=== PATIENT | female | born 1990 | race Asian ===

== ENCOUNTER 2020-01-08 15:10 | Outpatient (CLI) | payer BC | END 2020-01-08 21:48 | disposition home or self-care (01) | LOC: MAMMO 15:10 | DX: N63.24 Unspecified lump in the left breast, lower inner quadrant (principal) ==

== ENCOUNTER 2022-04-07 12:45 | Outpatient (CLI) | payer OTHER | END 2022-04-07 20:53 | disposition home or self-care (01) | LOC: US 12:45 | PROVIDERS: ATTEND Nurse Practitioner Family | DX: N63.23 Unspecified lump in the left breast, lower outer quadrant (principal) ==